=== PATIENT | female | born 1990 | race African-American/Black ===

== ENCOUNTER 2019-08-27 10:35 | Emergency (ER) | payer OTHER ==
[~2019-08-27] VITALS: Ht 172.7 cm; Wt 68.0 kg
--- NOTE | 2019-08-27 10:57 | NUR ---
PT IS IN ROOM #2B. DR RENTREIA EVALUATED THE PT.
--- NOTE | 2019-08-27 11:21 | NUR ---
PT WAS D/C'd TO HOME. D/C INSTRUCTIONS GIVEN TO THE PT.
[2019-08-27 11:22] VITALS: BP 125/78
== END 2019-08-27 11:22 | disposition home or self-care (01) ==
LOC: ER 10:35
DX: J40 Bronchitis, not specified as acute or chronic (principal)
CPT/HCPCS: 71045; A4663